=== PATIENT | female | born 1990 | race Caucasian/White ===

== ENCOUNTER 2018-06-13 00:52 | Emergency (ER) | payer BC ==
[~2018-06-13] VITALS: Ht 157.5 cm; Wt 57.6 kg
[2018-06-13 00:57] VITALS: BP_SYST 123
--- NOTE | 2018-06-13 01:25 | NUR ---
Patient called for bed placement. Stated she does not want to be seen at this time and will go to the urgent care "in the morning". Attempted to try and convince patient to stay for evaluation and she refused, left ED waiting room at this time.
== END 2018-06-13 01:25 | disposition left against medical advice (07) ==
LOC: SED 00:52
DX: R10.31 Right lower quadrant pain (principal); R19.7 Diarrhea, unspecified; R11.0 Nausea; Z53.21 Procedure and treatment not carried out due to patient leaving prior to being seen by health care provider

== ENCOUNTER 2018-06-13 14:17 | Emergency (ER) | payer BC ==
[~2018-06-13] VITALS: Ht 157.5 cm; Wt 58.1 kg
[2018-06-13 14:17] VITALS: BP_SYST 117
--- NOTE | 2018-06-13 14:20 | NUR ---
Patient triaged and placed in waiting room. VSS and patient appears in no acute distress at this time. Accompanied by SELF, awaiting available bed, and MD notified of need for MSE.
--- NOTE | 2018-06-13 14:30 | NUR ---
Patient came in states she has had the stomach flu with diarrhea this week, stabbling like pain in abdomen. Patient states she has been nauseated, denies fever, and diarrhea has stopped for approximately 24 hours.
--- NOTE | 2018-06-13 14:57 | NUR ---
BROUGHT BACK TO BED #5 AND REPORT GIVEN TO NASIMA
[2018-06-13 15:01] LABS: BASOPHILS % (AUTO) 0.6 % (0.0-2.0); EOSINOPHILS # (AUTO) 0.2 K/uL (0.0-0.4); EOSINOPHILS % (AUTO) 1.9 % (0.0-4.0); HEMATOCRIT 38.3 % (36-48); HEMOGLOBIN 12.7 g/dL (12.0-16.0); LYMPHOCYTES # (AUTO) 1.9 K/uL (1.0-5.5); LYMPHOCYTES % (AUTO) 23.5 % (20.5-51.5); MEAN CORPUSCULAR HEMOGLOBIN 30 pg (27-31); MEAN CORPUSCULAR HGB CONC 33 % (32-36); MEAN CORPUSCULAR VOLUME 89 fL (79.0-98.0); MONOCYTES # (AUTO) 0.5 K/uL (0.0-1.0); MONOCYTES % (AUTO) 6.5 % (1.7-9.3); NEUTROPHILS # (AUTO) 5.4 K/uL (1.8-7.7); NEUTROPHILS % (AUTO) 67.5 % (40.0-70.0); PLATELET COUNT (AUTO) 293 K/uL (130-430); RED CELL DISTRIBUTION WIDTH 11.3 % (9.0-15.0)
[2018-06-13 15:12] LABS: BILIRUBIN,URINE NEGATIVE (NEGATIVE); BLOOD, URINE NEGATIVE (NEGATIVE); CLARITY/URINE CLEAR (CLEAR); COLOR,URINE YELLOW (YELLOW); GLUCOSE,URINE NEGATIVE (NEGATIVE); KETONES,URINE NEGATIVE (NEGATIVE); LEUKOCYTE ESTERASE ,URINE NEGATIVE (NEGATIVE); NITRITE, URINE NEGATIVE (NEGATIVE); PROTEIN URINE NEGATIVE (NEGATIVE); UROBILINOGEN,URINE 0.2 (0.2-1.0)
[2018-06-13] MEDS ORDERED: IBUPROFEN 800 MG TABLET PO ONE (15:15)
[2018-06-13] MEDS ORDERED: ONDANSETRON 4 MG ODT TAB PO ONE (15:15)
--- NOTE | 2018-06-13 15:25 | NUR ---
Patient given zofran and motrin as ordered. Patient tolerated well.
[2018-06-13 15:26] LABS: CALCIUM 9.1 mg/dL (8.4-11.0); CREATININE 0.61 mg/dL (0.55-1.30); POTASSIUM 3.3 mmol/L (3.5-5.1)
--- NOTE | 2018-06-13 15:30 | NUR ---
ER at bedside examining patient.
[2018-06-13 15:33] LABS: ALBUMIN 4.1 g/dL (3.4-4.8); TOTAL BILIRUBIN 0.4 mg/dL (0.0-1.0)
[2018-06-13 15:38] LABS: PROTHROMBIN TIME 9.9 SECS (9.5-12.5)
--- NOTE | 2018-06-13 15:38 | NUR ---
TAKEN TO RADIOLOGY VIA AMBULATORY
--- NOTE | 2018-06-13 16:55 | NUR ---
Patient given written and verbal discharge instructions and verbalizes understanding. ER MD discussed with patient the results and treatment provided. Patient in stable condition. ID arm band removed. Rx of Ibuprofen and Zofran given. Patient educated on pain management and to follow up with PMD. Pain Scale 1/10. Opportunity for questions provided and answered.
[2018-06-13 16:59] VITALS: BP_SYST 114
== END 2018-06-13 16:55 | disposition home or self-care (01) ==
LOC: SED 14:17
DX: K52.9 Noninfective gastroenteritis and colitis, unspecified (principal); N83.209 Unspecified ovarian cyst, unspecified side
CPT/HCPCS: 36415; 74176; 81003; 80053; 81025; 82150; 83690; 84703; 85025; 85610; 85730; 99285; Q0162